=== PATIENT | female | born 1975 | race African-American/Black ===

== ENCOUNTER 2017-07-26 08:05 | Outpatient (CLI) | payer OTHER ==
--- NOTE | 2017-07-26 08:41 | MMO ---
BILATERAL SCREENING MAMMOGRAM: DATE: 07/26/17 HISTORY: 42-year-old female for screening mammography. COMPARISON: 07/14/16, 06/24/15, 06/13/14. FINDINGS: Bilateral MLO and CC views of the breasts show scattered fibroglandular breast tissue. There is no ev idence of suspicious mass, suspicious cluster of microcalcifications, or area of architectural distor tion. Interpretation of this mammogram was performed with the assistance of computer-aided detection. IMPRESSION: BIRADS 1: Negative Annual screening mammography is recommended. POS: [facility]
== END 2017-07-26 08:06 | disposition home or self-care (01) ==
LOC: SCSMAMMO 08:05
PROVIDERS: ATTEND Family Medicine
DX: Z12.31 Encounter for screening mammogram for malignant neoplasm of breast (principal)
CPT/HCPCS: 77067; G0202

== ENCOUNTER 2018-08-10 14:19 | Outpatient (CLI) | payer OTHER | END 2018-08-10 14:20 | disposition home or self-care (01) | LOC: BICMAMMO 14:19 | PROVIDERS: ATTEND Family Medicine | DX: Z12.31 Encounter for screening mammogram for malignant neoplasm of breast (principal) | CPT/HCPCS: 77063; 77067 ==

== ENCOUNTER 2019-08-12 14:57 | Outpatient (CLI) | payer OTHER ==
--- NOTE | 2019-08-12 16:48 | MMO ---
Bilateral MAMMO Bilat Screen [facility]. CLINICAL HISTORY: Patient is 44 years old and is seen for screening. The patient has no family history of breast cancer. The patient has no personal history of cancer. VIEWS: The views performed were: bilateral craniocaudal with tomosynthesis and bilateral mediolateral oblique with tomosynthesis. FILMS COMPARED: The present examination has been compared to prior imaging studies performed at [facility] on 06/19/2009, 06/13/2014 and 08/10/2018. This study has been interpreted with the assistance of computer-aided detection. MAMMOGRAM FINDINGS: There are scattered fibroglandular densities. There are no suspicious masses, suspicious calcifications, or new areas of architectural distortion. IMPRESSION: THERE IS NO MAMMOGRAPHIC EVIDENCE OF MALIGNANCY. A ROUTINE FOLLOW-UP MAMMOGRAM IN 1 YEAR IS RECOMMENDED. THE RESULTS OF THIS EXAM WERE SENT TO THE PATIENT. ACR BI-RADS Category 1 - Negative MAMMOGRAPHY NOTE: 1. A negative mammogram report should not delay a biopsy if a dominant of clinically suspicious mass is present. 2. Approximately 10% to 15% of breast cancers are not detected by mammography. 3. Adenosis and dense breasts may obscure an underlying neoplasm. Reported by: JHONNY SANCHEZ MD Electonically Signed: [id number]
== END 2019-08-12 14:58 | disposition home or self-care (01) ==
LOC: BICMAMMO 14:57
PROVIDERS: ATTEND Family Medicine
DX: Z12.31 Encounter for screening mammogram for malignant neoplasm of breast (principal)
CPT/HCPCS: 77063; 77067

== ENCOUNTER 2020-08-21 13:49 | Outpatient (CLI) | payer OTHER ==
--- NOTE | 2020-08-21 14:13 | MMO ---
Bilateral MAMMO Bilat Screen [facility]. CLINICAL HISTORY: Patient is 45 years old and is seen for screening. The patient has no family history of breast cancer. The patient has no personal history of cancer. VIEWS: The views performed were: bilateral craniocaudal with tomosynthesis and bilateral mediolateral oblique with tomosynthesis. FILMS COMPARED: The present examination has been compared to prior imaging studies performed at [facility] on 06/19/2009, 06/13/2014, 08/10/2018 and 08/12/2019. This study has been interpreted with the assistance of computer-aided detection. MAMMOGRAM FINDINGS: There are scattered fibroglandular densities. There are no suspicious masses, suspicious calcifications, or new areas of architectural distortion. IMPRESSION: THERE IS NO MAMMOGRAPHIC EVIDENCE OF MALIGNANCY. A ROUTINE FOLLOW-UP MAMMOGRAM IN 1 YEAR IS RECOMMENDED. THE RESULTS OF THIS EXAM WERE SENT TO THE PATIENT. ACR BI-RADS Category 1 - Negative MAMMOGRAPHY NOTE: 1. A negative mammogram report should not delay a biopsy if a dominant of clinically suspicious mass is present. 2. Approximately 10% to 15% of breast cancers are not detected by mammography. 3. Adenosis and dense breasts may obscure an underlying neoplasm. Reported by: ANJEL BADILLO MD Electonically Signed: [id number]
== END 2020-08-21 13:50 | disposition home or self-care (01) ==
LOC: BICMAMMO 13:49
PROVIDERS: ATTEND Family Medicine
DX: Z12.31 Encounter for screening mammogram for malignant neoplasm of breast (principal)
CPT/HCPCS: 77063; 77067

== ENCOUNTER 2021-09-24 12:28 | Outpatient (CLI) | payer BC | END 2021-09-24 12:29 | disposition home or self-care (01) | LOC: BICMAMMO 12:28 | PROVIDERS: ATTEND Family Medicine | DX: Z12.39 Encounter for other screening for malignant neoplasm of breast (principal) | CPT/HCPCS: 77063; 77067 ==

== ENCOUNTER 2022-07-16 13:08 | Outpatient (CLI) | payer BC | END 2022-07-16 13:09 | disposition home or self-care (01) | LOC: LAB 13:08 | PROVIDERS: ATTEND Nurse Practitioner Family | DX: M79.644 Pain in right finger(s) (principal) | CPT/HCPCS: 36415; 84550 ==

== ENCOUNTER 2022-10-28 13:55 | Outpatient (CLI) | payer BC | END 2022-10-28 13:56 | disposition home or self-care (01) | LOC: BICMAMMO 13:55 | PROVIDERS: ATTEND Family Medicine | DX: Z12.31 Encounter for screening mammogram for malignant neoplasm of breast (principal) | CPT/HCPCS: 77063; 77067 ==

== ENCOUNTER 2023-07-28 14:37 | Outpatient (CLI) | payer BC | END 2023-07-28 14:38 | disposition home or self-care (01) | LOC: BICRAD 14:37 | PROVIDERS: ATTEND Nurse Practitioner Family | DX: M25.561 Pain in right knee (principal); M17.11 Unilateral primary osteoarthritis, right knee ==

== ENCOUNTER 2023-08-10 17:00 | Outpatient (CLI) | payer BC | END 2023-08-10 17:01 | disposition home or self-care (01) | LOC: SLEEPLAB 17:00 | PROVIDERS: ATTEND Internal Medicine Critical Care Medicine | DX: G47.33 Obstructive sleep apnea (adult) (pediatric) (principal); R06.83 Snoring; R53.83 Other fatigue | CPT/HCPCS: 95800 ==

== ENCOUNTER 2023-09-28 07:13 | Emergency (ER) | payer BC ==
[2023-09-28] MEDS ORDERED: Sodium Chloride 0.9% 100 ML ONE (07:40)
[2023-09-28] MEDS ORDERED: cefTRIAXone (ROCEPHIN) 2 GM VIAL ONE (07:40)
[2023-09-28] MEDS ORDERED: Ketorolac Tromethamine 30 MG (1 mL) VIAL ONE (07:40)
[2023-09-28 07:52] LABS: #Monocytes 0.4 thou/uL (0.11-0.59); #Neutrophils 4.2 thou/uL (1.40-6.50); %Basophils 0.4 % (0.0-1.0); %Eosinophils 0.2 % (0.0-10.0); %Lymphocytes 8.8 % (21.0-51.0); %Monocytes 8.6 % (0.0-10.0); %Neutrophils 81.6 % (42.0-75.0); Hematocrit 36.5 % (36.0-47.0); Mean Corpuscular HGB CONC 32.9 g/dL (32.0-36.0); Mean Corpuscular Hemoglobin 27.2 pg (27.0-31.0); Mean Corpuscular Volume 82.8 fl (78.0-98.0); Mean Platelet Volume 9.4 fL (7.4-10.4); Platelet Count 255 10x3/uL (130-400); RBC Distribution Width 14.3 % (11.5-14.5); Red Blood Cell (RBC) Count 4.41 mill/uL (4.20-5.40); White Blood Cell (WBC) Count 5.1 10x3/uL (4.8-10.8)
[2023-09-28 08:08] LABS: ALT (SGPT) 14 U/L (8-55); AST (SGOT) 13 U/L (5-34); Albumin 3.9 g/dL (3.5-5.0); Alkaline Phosphatase 61 U/L (40-110); Anion Gap 13 mmol/L (10-20); BUN (Urea Nitrogen) 19 mg/dL (7.0-18.7); Bilirubin, Total 0.2 mg/dL (0.2-1.2); Calc. Creatinine Clearance 0 mL/min (70-130); Calcium 9.2 mg/dL (7.8-10.44); Carbon Dioxide 24 mmol/L (22-29); Chloride 104 mmol/L (98-107); Estimated GFR 67; Globulin 3.7 g/dL (2.4-3.5); Glucose 101 mg/dL (70-105); Lipase 30 U/L (8-78); Potassium 3.7 mmol/L (3.5-5.1); Protein, Total 7.6 g/dL (6.0-8.3); Sodium 137 mmol/L (136-145)
[2023-09-28 09:44] LABS: SARS-CoV-2 NAA Rapid Test DETECTED (NotDetected)
[2023-09-28 11:05] LABS: Bacteria/HPF None Seen HPF (None Seen); Bilirubin Negative (Negative); Blood, Urine Negative (Negative); CAUTI Indications for Culture Pelvic or flank pain; Clarity Clear (Clear); Glucose, Urine (Dipstick) Normal (Negative); Ketone, Urine Negative (Negative); Leukocyte Negative Leu/uL (Negative); Nitrite Negative (Negative); Protein, Urine (Dipstick) 10 mg/dL (Neg-Trace); RBC/HPF 0-3 HPF (0-3); Specific Gravity, Urine 1.032 (1.002-1.036); Squamous Epithelial 0-3 HPF (0-3); Urobilinogen Normal mg/dL (Less than 2); WBC/HPF None Seen HPF (0-3); pH, Urine 7.5 (5.0-9.0)
[2023-09-28 11:09] LABS: Urine Culture Reflex No No
== END 2023-09-28 10:30 | disposition home or self-care (01) ==
LOC: ERS 07:13
DX: U07.1 COVID-19 (principal); R10.31 Right lower quadrant pain; I10 Essential (primary) hypertension
CPT/HCPCS: 74177; 80053; 81001; 83605; 83690; 85025; 87040; 87086; 87804; 93005; 96365; 96375; J0696; J1885; J3490; U0002

== ENCOUNTER 2023-11-03 13:38 | Outpatient (CLI) | payer BC | END 2023-11-03 13:39 | disposition home or self-care (01) | LOC: BICMAMMO 13:38 | PROVIDERS: ATTEND Nurse Practitioner Family | DX: Z12.31 Encounter for screening mammogram for malignant neoplasm of breast (principal) | CPT/HCPCS: 77063; 77067 ==

== ENCOUNTER 2024-05-21 18:16 | Emergency (ER) | payer BC ==
[~2024-05-21 18:16] MED LIST: Iopamidol-370 76% 500 ML MDV (1 ML CHARGE) ONE
[2024-05-21 20:10] LABS: #Basophils 0.03 10x3/uL (0.0-0.2); %Basophils 0.4 % (0.0-1.0); %Eosinophils 0.7 % (0.0-10.0); %Monocytes 6.2 % (0.0-10.0); %Neutrophils 52.4 % (42.0-75.0); Hematocrit 37.1 % (36.0-47.0); Hemoglobin 12.1 g/dL (12.0-16.0); Mean Corpuscular HGB CONC 32.6 g/dL (32.0-36.0); Mean Corpuscular Hemoglobin 26.9 pg (27.0-31.0); Mean Corpuscular Volume 82.6 fL (78.0-98.0); Mean Platelet Volume 9.6 fL (7.4-10.4); Platelet Count 259 10x3/uL (130-400); RBC Distribution Width 14.1 % (11.5-14.5); Red Blood Cell (RBC) Count 4.49 mill/uL (4.20-5.40)
[2024-05-21] MEDS ORDERED: Ondansetron PF 4 MG/2 ML Vial ONE (20:21)
[2024-05-21] MEDS ORDERED: Ketorolac Tromethamine 30 MG (1 mL) VIAL ONE (20:22)
[2024-05-21 20:30] LABS: BHCG - Serum Negative (NEGATIVE); Pregs Control Background? CLEAR/WHITE (CLR/WHITE); Pregs Control Bar Appear? YES (CONTROL BAR)
[2024-05-21 20:34] LABS: ALT (SGPT) 11 U/L (8-55); AST (SGOT) 13 U/L (5-34); Albumin 3.5 g/dL (3.5-5.0); Alkaline Phosphatase 73 U/L (40-110); Anion Gap 16 mmol/L (10-20); BUN (Urea Nitrogen) 13 mg/dL (7.0-18.7); Bilirubin, Total 0.3 mg/dL (0.2-1.2); Calc. Creatinine Clearance 0 mL/min (70-130); Calcium 9.2 mg/dL (7.8-10.44); Carbon Dioxide 23 mmol/L (22-29); Chloride 102 mmol/L (98-107); Estimated GFR 65; Glucose 90 mg/dL (70-105); Lipase 22 U/L (8-78); Potassium 3.6 mmol/L (3.5-5.1); Protein, Total 7.5 g/dL (6.0-8.3); Sodium 137 mmol/L (136-145)
[2024-05-21 21:42] LABS: Bilirubin Negative (Negative); Blood, Urine Negative (Negative); CAUTI Indications for Culture Dysuria,urgency,freq; Clarity Clear (Clear); Glucose, Urine (Dipstick) Normal (Negative); Ketone, Urine Negative (Negative); Leukocyte Negative Leu/uL (Negative); Nitrite Negative (Negative); Protein, Urine (Dipstick) Negative (Neg-Trace); RBC/HPF 0-3 HPF (0-3); Specific Gravity, Urine 1.009 (1.002-1.036); Squamous Epithelial 0-3 HPF (0-3); Urobilinogen Normal mg/dL (Less than 2); WBC/HPF 0-3 HPF (0-3); pH, Urine 5.5 (5.0-9.0)
[2024-05-21 21:43] LABS: Bacteria/HPF 1+ HPF (None Seen)
[2024-05-21 21:45] LABS: Urine Culture Reflex No No
== END 2024-05-21 22:23 | disposition home or self-care (01) ==
LOC: ERS 18:16
DX: K57.32 Diverticulitis of large intestine without perforation or abscess without bleeding (principal); I10 Essential (primary) hypertension
CPT/HCPCS: 36415; 74177; 80053; 81001; 83690; 84703; 85025; 96374; 96375; J1885; J2405; Q9967

== ENCOUNTER 2025-04-21 15:30 | Outpatient (CLI) | payer BC | END 2025-04-21 15:31 | disposition home or self-care (01) | LOC: BICRAD 15:30 | PROVIDERS: ATTEND Internal Medicine | DX: M25.562 Pain in left knee (principal); M17.12 Unilateral primary osteoarthritis, left knee ==

== ENCOUNTER 2025-04-23 15:23 | Outpatient (CLI) | payer BC | END 2025-04-23 15:24 | disposition home or self-care (01) | LOC: BICRAD 15:23 | PROVIDERS: ATTEND Nurse Practitioner Family | DX: S89.92XD Unspecified injury of left lower leg, subsequent encounter (principal) ==

== ENCOUNTER 2025-04-25 13:33 | Outpatient (CLI) | payer BC | END 2025-04-25 13:34 | disposition home or self-care (01) | LOC: MRI 13:33 | PROVIDERS: ATTEND Internal Medicine | DX: M25.562 Pain in left knee (principal); M25.462 Effusion, left knee; S83.282A Other tear of lateral meniscus, current injury, left knee, initial encounter; M94.262 Chondromalacia, left knee ==